=== PATIENT | female | born 1990 | race Two or more races ===

== ENCOUNTER 2022-06-18 05:51 | Emergency (ER) | payer OTHER ==
[~2022-06-18] VITALS: Ht 149.9 cm; Wt 90.3 kg
[2022-06-18] MEDS ORDERED: DOLOGESIC 500-1 EACH (06:28)
[2022-06-18] MEDS ORDERED: AMOX1TAB5 (06:28)
== END 2022-06-18 16:07 | disposition home or self-care (01) ==
LOC: ER 05:51
DX: R10.11 Right upper quadrant pain (principal); R11.10 Vomiting, unspecified; Z88.2 Allergy status to sulfonamides

== ENCOUNTER 2025-07-16 09:00 | Emergency (ER) | payer OTHER ==
[~2025-07-16] VITALS: Ht 147.3 cm; Wt 75.3 kg
[~2025-07-16 09:00] MED LIST: AMOX1TAB5; DOLOGESIC 500-1 EACH
[2025-07-16] MEDS ORDERED: LAMICTAL100 M1 PO (09:14)
[2025-07-16] MEDS ORDERED: WELLBUTRIN SR200 MG PO (09:14)
[2025-07-16] MEDS ORDERED: TOPAMAX50 MG PO (09:14)
[2025-07-16] MEDS ORDERED: SYNTHROID88 MCG PO (09:14)
[2025-07-16 09:15] VITALS: BP 110/72; O2SAT 100
[2025-07-16] MEDS ORDERED: SEROQUEL50 MG (09:15)
[2025-07-16] MEDS ORDERED: HYOSCYAMINE SULFATE 0.125 MG TAB.SUBL SL STA (09:32)
[2025-07-16] MEDS ORDERED: FAMOTIDINE/PF 20 MG/2 ML VIAL IV PUSH STA (09:32)
[2025-07-16] MEDS ORDERED: ONDANSETRON HCL 2 MG/ML VIAL IV STA (09:33)
[2025-07-16] MEDS ORDERED: HYOSCYAMINE SULFATE 0.125 MG TAB.SUBL ONE (09:33)
[2025-07-16] MEDS ORDERED: FAMOTIDINE/PF 20 MG/2 ML VIAL ONE (09:33)
[2025-07-16] MEDS ORDERED: ONDANSETRON HCL 2 MG/ML VIAL ONE (09:33)
[2025-07-16] MEDS ORDERED: MORPHINE SULFATE 4 MG/ML CARTRIDGE IV STA ×2 (09:45→19:30)
[2025-07-16] MEDS ORDERED: 0.9 % SODIUM CHLORIDE 1,000 ML IV STA (09:46)
[2025-07-16 09:56] LABS: BASO % 0.2 % (0.1-1.2); EOS # 0.07 (0.04-0.54); EOS % 0.7 % (0.7-7.0); LYMPH # 1.37 (1.18-3.74); LYMPH % 13.0 % (19.3-53.1); MEAN PLATELET VOLUME 10.00 fl (9.4-12.4); MONO # 0.90 (0.24-0.82); MONO % 8.5 % (4.7-12.5); NEUT # 8.10 (1.56-6.13); NEUT % 76.8 % (34.0-71.1); RED CELL DISTRIBUTION WIDTH 11.8 % (11.6-14.4)
[2025-07-16 10:08] LABS: ERYTHROCYTE SEDIMENTATION RATE 3 mm/hr (0-20)
[2025-07-16 10:56] LABS: ALT/SGPT 18.0 U/L (12-78); AST/SGOT 9.0 U/L (15-37); BILIRUBIN TOTAL 1.12 mg/dL (0.3-1.2); BUN CREA RATIO 32.0 (7.0-25.0); CREATININE SERUM 0.6 mg/dL (0.55-1.02); GFR 113.76; GLOBULINA 3.1 G/DL (2.4-3.5); GLUCOSE FASTING 86.0 mg/dL (65-100); OSMOLALITY SERUM 283.0 MOSM/KG (275-295)
[2025-07-16 11:49] LABS: URINE APPEARANCE Clear; URINE BILIRRUBIN Negative (NEGATIVE); URINE BLOOD Negative; URINE COLOR Yellow; URINE GLUCOSE Negative (NEGATIVE); URINE KETONE Negative (NEGATIVE); URINE LEUKOCYTE Negative; URINE NITRATE Negative; URINE PROTEIN Negative (NEGATIVE); URINE UROBILINOGEN 0.2 E.U./dl
[2025-07-16 11:53] LABS: URINE BACTERIA 261.9 uL (0.0-1933); URINE EPITHELIAL CELLS 7.0 uL (0.0-38.8); URINE RBC 5.5 uL (0.0-20.8)
[2025-07-16 12:08] LABS: URINE CAST 0.00 uL (0.0-1.40); URINE WBC 0.9 uL (0.0-23.2)
[2025-07-16] MEDS ORDERED: CIPROFLOXACIN IN 5 % DEXTROSE 400 MG/200 ML PIGGYBAG IV STA (12:25)
[2025-07-16] MEDS ORDERED: CIPROFLOXACIN IN 5 % DEXTROSE 400 MG/200 ML PIGGYBAG IV ONE (12:43)
[2025-07-16] MEDS ORDERED: TRAMADOL HCL 50 MG TABLET PO STA (13:46)
[2025-07-16] MEDS ORDERED: KETOROLAC TROMETHAMINE 15 MG VIAL IV STA (15:01)
[2025-07-16] MEDS ORDERED: KETOROLAC TROMETHAMINE 30 MG VIAL ONE (15:15)
== END 2025-07-16 21:58 | disposition home or self-care (01) ==
LOC: ER 09:01
PROVIDERS: General Practice
DX: N80.8 Other endometriosis (principal); N80.121 Deep endometriosis of right ovary; Z91.018 Allergy to other foods